=== PATIENT | female | born 1960 | race Caucasian/White ===

== ENCOUNTER 2020-08-01 21:28 | Emergency (ER) | payer SELFPAY ==
[2020-08-01] MEDS ORDERED: HYDROCODON-ACE1 EAC4 PO (22:59)
== END 2020-08-01 23:30 | disposition home or self-care (01) ==
LOC: ER1 21:28
DX: S82.432A Displaced oblique fracture of shaft of left fibula, initial encounter for closed fracture (principal); V09.9XXA Pedestrian injured in unspecified transport accident, initial encounter; Y92.410 Unspecified street and highway as the place of occurrence of the external cause
CPT/HCPCS: 29515; 73590; 99283

== ENCOUNTER → 2020-08-30 | Outpatient (CLI) | payer SELFPAY ==
[~2020-08-30] MED LIST: HYDROCODON-ACE1 EAC4 PO
== END ==
LOC: KOH-I 13:30
DX: S82.831D Other fracture of upper and lower end of right fibula, subsequent encounter for closed fracture with routine healing (principal)
CPT/HCPCS: 73700